=== PATIENT | female | born 1985 | race Caucasian/White ===

== ENCOUNTER → 2018-03-18 | Outpatient (CLI) | payer BC | END | disposition home or self-care (01) | LOC: C.PATHSPEC 17:33 | PROVIDERS: ATTEND Obstetrics & Gynecology | DX: N85.01 Benign endometrial hyperplasia (principal) ==

== ENCOUNTER 2018-03-28 08:36 | Day surgery (SDC) | payer BC, OTHER ==
[2018-03-11 11:46] VITALS: BMI 36.0
[2018-03-28] VITALS (7 sets, daily range): BP systolic 110–137; BP diastolic 66–84; PULSE 66–98; TEMP 36.6–37; O2SAT 98–100; Ht 165.1 cm; Wt 100.0 kg
[~2018-03-28] VITALS: Ht 165.1 cm; Wt 100.0 kg
[~2018-03-28 08:36] MED LIST: CEFAZOLIN 3000MG IV PUSH 22.5 ML IV SCH; DEXAMETHASONE SOD INJ 4 MG/ML VIAL ONE; EpHEDrine SULFATE 50MG/5ML SYR ONE; FENTANYL CITRATE INJ 50 MCG/1 ML 2 ML VIAL ONE; GLYCOPYRROLATE INJ 0.2 MG/ML VIAL ONE; KETOROLAC TROMETHAMINE 30 MG/ML VIAL ONE; LACTATED RINGER'S 1000ML 1,000 ML IV SCH; LARYING-O-JET KIT (LTA) ONE; LIDOCAINE HCL 2% 2 ML VIAL (20MG/ML) ONE; MIDAZOLAM HCL 1 MG/ML 2ML VIAL ONE; NEOSTIGMINE METHYLSULFATE 5 MG/5 ML SYR ONE; ONDANSETRON INJ 2 MG/ML 2 ML VIAL ONE; PHENYLEPHRINE 100MCG/ML 5ML SYR ONE; PROPOFOL IV EMULSION 10 MG/ML 20 ML VIAL ONE; ROCURONIUM BROMIDE 10 MG/ML 5 ML VIAL ONE
--- NOTE | 2018-03-28 10:55 | History & Physical Bridge Note ---
H&P Re-Evaluation Bridge Note: I have examined the patient, reviewed the History & Physical and in the interval since the performance of the History & Physical I have noted the following changes of clinical significance: No changes noted
[2018-03-28] MEDS ORDERED: BUPIVACAINE 0.5 % 5 MG/1 ML MPF 30ML VIAL ONE (11:41)
[2018-03-28] MEDS ORDERED: HYDROmorphone INJ 1 MG/ML SYR IV PRN (12:00)
[2018-03-28] MEDS ORDERED: EpHEDrine SULFATE INJ 50 MG/ML AMP IV PRN (12:00)
[2018-03-28] MEDS ORDERED: ATROPINE SULFATE 0.1 MG/ML 5ML SYR IV PRN (12:00)
[2018-03-28] MEDS ORDERED: ONDANSETRON INJ 2 MG/ML 2 ML VIAL IV PRN ×2 (12:00→13:30)
[2018-03-28] MEDS ORDERED: FENTANYL CITRATE INJ 50 MCG/1 ML 2 ML VIAL ONE (12:15)
[2018-03-28] MEDS ORDERED: ROCURONIUM BROMIDE 10 MG/ML 5 ML VIAL ONE (12:21)
[2018-03-28] MEDS ORDERED: TISSEEL FIBRIN SEALANT 4ML TOP ONE (12:36)
[2018-03-28] MEDS ORDERED: METHYLENE BLUE 1% 10 ML VIAL IV ONE (12:45)
[2018-03-28] MEDS ORDERED: LACTATED RINGER'S 1000ML 1,000 ML IV SCH (13:28)
--- NOTE | 2018-03-28 13:28 | [facility] Post Operative Brief Note ---
Immediate Operative Summary Operative Date March 28, 2018. Pre-Operative Diagnosis 1. Menorrhagia 2. Pelvic Pain Post-Operative Diagnosis 1. Menorrhagia 2. Pelvic Pain 3. Endometriosis Procedure(s) Performed Total Laparoscopic Hysterectomy, Bilateral Salpingectomy, Cystoscopy Surgeon Dr. Toby Lloyd Utility Arborist Surgeon(s) None Estimated Blood Loss 20 mL Findings Consistent with Post-Op Diagnosis Specimens Permanent specimens A: Uterus, cervix, and bilateral fallopian tubes Drains Nichols Anesthesia Type General Complication(s) none Disposition Accompanied Pt To Recover: no Disposition: Recovery Room / PACU
[2018-03-28] MEDS ORDERED: MAGNESIUM HYDROXIDE SUSP 30 ML UDC PO PRN (13:30)
[2018-03-28] MEDS ORDERED: MEPERIDINE HCL 50 MG/ML CARP IV PRN ×2 (13:30)
[2018-03-28] MEDS ORDERED: KETOROLAC TROMETHAMINE 30 MG/ML VIAL IV. PRN (13:30)
[2018-03-28] MEDS ORDERED: SIMETHICONE 80 MG CHEW PO PRN (13:30)
[2018-03-28] MEDS ORDERED: OXYCODONE/ACETAMINOPHEN 5-325 TAB PO PRN ×2 (13:30)
[2018-03-28] MEDS ORDERED: BISACODYL 10 MG SUPP PR PRN (13:30)
[2018-03-28] MEDS ORDERED: PROMETHAZINE HCL INJ 12.5 MG in SODIUM CHLORIDE 0.9% 50ML 50 ML IV PRN (13:30)
[2018-03-28] MEDS ORDERED: IBUPROFEN 600 MG TAB PO PRN (13:30)
[2018-03-28] MEDS ORDERED: ZOLPIDEM TARTRATE 5 MG TAB PO PRN (13:30)
[2018-03-28] MEDS ORDERED: ACETAMINOPHEN 325 MG TAB PO PRN (13:30)
[2018-03-28] MEDS ORDERED: PROMETHAZINE HCL INJ 25 MG in SODIUM CHLORIDE 0.9% 50ML 50 ML IV PRN (13:30)
--- NOTE | 2018-03-28 13:32 | Discharge Instructions ---
Discharge Instructions Date of Service March 28, 2018. Admission Reason for Admission: Menorrhagia Discharge Discharge Diagnosis / Problem: Menorrhagia Discharge Goals Goal(s): Routine recovery after surgery Activity Recommendations Activity Limitations: per Instructions/Follow-up section . Instructions / Follow-Up Instructions / Follow-Up POST OPERATIVE: BOWEL FUNCTION/MEDICATIONS: 1. Constipation pain and discomfort are the most common complaints 5-7 days after surgery. Points 2-6 address the things that can help. 2. Chewing gum can help stimulate the gut and help improve digestion and motility. 3. Milk of Magnesia 1-2 times per day until return of bowel function. 4. Colace is a stool softener that helps. Taking this 2-3 times per day until bowel function returns to normal is highly recommended. 5. Dulcolax is a laxative that may be used if several days have passed without a bowel movement. Alternatively Miralax may be used daily instead. 6. Drink plenty of fluids as this will also reduce constipation. 7. Narcotic pain medications will be prescribed by your physician. They are safe to use and we encourage you to use them. If you are not allergic, ibuprofen will also be prescribed. Many patients will be able to transition off of the narcotic medications to ibuprofen by postoperative day 3. ACTIVITY RECOMMENDATIONS: 1. Get plenty of rest and listen to your body. If you are tired, take a nap. 2. You may shower, but do not take a tub bath until you see your doctor at the 2 week post operative visit. 3. Absolutely NO intercourse and nothing in the vagina until you are examined by your doctor at the 6 week visit. At that visit it will be determined when such activities can be resumed. This can range from 6-12 weeks after your surgery depending on healing time. 4. The main physical activity in the first week should be walking. By the second week you can slowly increase activity. There are no limits on walking up and down stairs. 5. Do not lift more than 5-10 lbs for 4 weeks. Remember the "one-handed rule", i.e. if you can lift something with only one hand it's likely okay. 6. Minimize informatics specialist like vacuuming and exercising for 4 weeks. "Overdoing it" can lead to incisions not healing, pain and vaginal bleeding , so again, listen to your body. 7. Driving can be resumed when you feel able. Do not drive within 24 hours of taking a narcotic medication. EXPECTATIONS: 1. Vaginal spotting, bleeding and discharge are common after surgery. There may even be an odor to the discharge which is often related to sutures used in the vagina. If you experience heavy vaginal bleeding, call the office number day or night [phone]. 2. Bladder discomfort is common after surgery from the catheter. This usually resolves in 1-2 weeks. 3. By the end of the 3rd or 4th week you should be feeling much better. It may take up to 6 weeks for your energy levels to return to normal. 4. Narcotic medications have side effects such as: dizziness, headache, nausea and/or vomiting. If you suspect your pain medication is causing problems, call our office and we may be able to prescribe an alternate medication. 5. The skin incisions are often covered with a liquid bandage. This will gradually peel off over time. CALL THE OFFICE IF YOU HAVE ANY OF THE FOLLOWIN. Temperature of 101 degrees or higher. 2. Severe abdominal or pelvic pain not relieved by pain medication. 3. Persistent nausea or vomiting. 4. Increased pain with urination or difficulty urinating. 5. Bright red bleeding that soaks more than 1 pad per hour. CONTACT PHONE NUMBERS: Main Office: [phone] Surgical Nurse: [phone] extension [phone] Avoid all tobacco products. If you need help to stop smoking, call [place]'s FREE QUITLINE at . This is a free call. Current Hospital Diet Patient's current hospital diet: Discharge Diet Recommended Diet: Regular Diet Procedures Procedures Performed: Total Laparoscopic Hysterectomy, Bilateral Salpingectomy, Cystoscopy Pending Studies Studies pending at discharge: no Medical Emergencies . Who to Call and When: Medical Emergencies: If at any time you feel your situation is an emergency, please call 911 immediately. . Non-Emergent Contact Non-Emergency issues call your: Mirror [employer] . . "Provider Documentation" section prepared by Ahsan Lloyd. .
[2018-03-28] MEDS ORDERED: OXYC-57 PO (13:33)
[2018-03-28] MEDS ORDERED: MTR600X PO (13:33)
[2018-03-28] MEDS ORDERED: HYDROmorphone INJ 0.5 MG/0.5 ML SYR ONE (13:44)
[2018-03-28] MEDS: FENTANYL CITRATE INJ 50 MCG/1 ML 2 ML VIAL IV PRN ×4 (13:45→14:08)
[2018-03-28] MEDS ORDERED: IV FLUIDS COMPLETED PRN (14:00)
--- NOTE | 2018-03-28 14:02 | Anesthesiology Progress Note ---
Anesthesia Post Op Note Date & Time March 28, 2018 at 14:02 Vital Signs Pain Intensity: 2 Vital Signs Past 12 Hours Date Time Temp Pulse Resp B/P (MAP) Pulse Ox O2 Delivery O2 Flow Rate FiO2 03/28/18 13:35 36.6 75 14 128/70 100 Oxymask 7 03/28/18 09:10 36.7 83 18 111/68 (82) 98 Room Air Notes Mental Status: alert / awake / arousable, participated in evaluation Pt Amnestic to Procedure: Yes Nausea / Vomiting: adequately controlled Pain: adequately controlled Airway Patency, RR, SpO2: stable & adequate BP & HR: stable & adequate Hydration State: stable & adequate Anesthetic Complications: no major complications apparent
--- NOTE | 2018-03-28 16:31 | OPERATIVE REPORT ---
DATE OF OPERATION: 03/28/2018 PREOPERATIVE DIAGNOSES: Menorrhagia, pelvic pain. POSTOPERATIVE DIAGNOSES: Menorrhagia, pelvic pain, endometriosis. PROCEDURE: Total laparoscopic hysterectomy, bilateral salpingectomy, cystoscopy, lysis of adhesions. SURGEON: Ahsan Lloyd MD ASSISTANTS: None. ESTIMATED BLOOD LOSS: 20 mL. FINDINGS: Consistent with postoperative diagnoses. SPECIMENS: Uterus, cervix, and bilateral fallopian tubes. DRAINS: Nichols catheter. ANESTHETIC: General. COMPLICATIONS: None. DISPOSITION: Recovery room. DESCRIPTION OF PROCEDURE: Shelbi was given a general anesthetic, prepped and draped in dorsal lithotomy position in [facility]. IV Ancef was given preoperatively. A Nichols catheter was placed into her bladder. VCare sewn into her cervix. Gloves were changed and a supraumbilical incision was made with a scalpel cutting down directly through subcutaneous fat to the fascia in the midline, splitting the rectus muscles and entering the peritoneal cavity without difficulty. A blunt-tipped Bel trocar was placed, balloon was inflated to stabilize the port, CO2 gas used to insufflate the abdomen. FINDINGS: Upper abdomen, no sign of visceral organ injury. There were some adhesions inferior to the umbilicus. These were strictly of omentum. Deep Trendelenburg position revealed some minimal adhesions of the bladder flap, some endometriosis at the posterior aspect of the uterus, otherwise within normal limits. Prior tubal ligation was noted as well. Two robotic ports in the right, one on the left were placed. The left upper quadrant an 11 mm bladeless port was placed. Robot was docked. Arm #1 was monopolar lily, arm #2 was bipolar [place], and then a bipolar fenestrated, arm #3 was ProGrasp. We first lysed the adhesions, staying close to the anterior abdominal wall with the omentum. Care was used to use electrosurgery when needed and once the adhesions were freed, I was able to visualize the pelvis better. The ureter was then tracked on the left side, it was well away from the uteroovarian blood supply. The left tube was removed in the usual fashion and also removed through the accessory port. The uteroovarian blood supply coagulated with the bipolar [place] and then cut with monopolar lily. Same process with the round ligament. Uterine vessels were then skeletonized. The bladder flap was sharply dissected away and then we coagulated the uterine vessels which were well away from the left ureter and cut these. The exact same process repeated on the right side. Once the bladder flap was fully dissected away, I was able to make an anterior colpotomy with the monopolar lily. The colpotomy was completed, then the uterus was pulled into the vagina and removed. Sponge and a glove was placed to maintain pneumoperitoneum. There was a small area of endometriosis which was coagulated with the monopolar lily in the posterior aspect of the uterus. I then performed instrument changes, arm #1 became the loraine needle driver license technician, arm #2 the [employer] grasper. 12 inch 2-0 90-day V-Loc suture then placed and cuff was closed from [id number], back [id number]. Suture was cut, so there was no tail and the needle was removed through the accessory port. After generous irrigation and suction, we applied 4 mL of Tisseel to the pedicles. At this stage, hemostasis was excellent. We inspected tube where the omentum was and hemostasis was excellent where the prior adhesions had been lysed. We then performed cystoscopy by removing the Nichols catheter. IV methylene blue was given at the start of cuff closure. Good strong jets of bluish green dye from the left and right ureter openings. No stitches or defects in the bladder, no abnormalities seen. Cystoscope was removed and a new Nichols catheter placed. Sponge was removed from the vagina and seal was airtight. Robot was undocked. Gas allowed to escape. Incisions were injected with 0.5% Marcaine after the ports had been removed. Fascia was closed in the umbilical incision carefully with 0 Vicryl, subcutaneous fat closed in the left upper quadrant accessory port as well with 0 Vicryl, 4-0 subcuticular Monocryl closures, and Dermabond applied. Sponge and instrument counts correct. I attest to the content of the Intraoperative Record and any orders documented therein. Any exception s are noted below.
[2018-03-28] MEDS ORDERED: DOCUSATE SODIUM 100 MG CAP PO SCH (21:00)
--- NOTE | 2018-03-29 08:58 | DISCHARGE SUMMARY ---
Shelbi had a total laparoscopic hysterectomy on 03/28/2018. Procedure was uncomplicated. Course in hospital was only a few hours afterwards. After that time, she was ambulating, tolerating an oral diet, pain was well controlled on oral medication. She was voiding well and had no extremity pain. Discharge instructions were reviewed with the patient. She was given Percocet and Motrin and told to follow up in the office and call sooner with any problems.
== END 2018-03-28 19:15 | disposition home or self-care (01) ==
LOC: C.ACU 08:36 → C.MS4N 09:00 → ENRESERV 14:01
PROVIDERS: ADMIT Obstetrics & Gynecology; ATTEND Obstetrics & Gynecology
DX: N92.0 Excessive and frequent menstruation with regular cycle (principal); N83.8 Other noninflammatory disorders of ovary, fallopian tube and broad ligament; N80.0 Endometriosis of uterus; Z82.49 Family history of ischemic heart disease and other diseases of the circulatory system
CPT/HCPCS: 58571; S2900